=== PATIENT | female | born 1980 | race Caucasian/White ===

== ENCOUNTER 2022-05-06 18:46 | Emergency (ER) | payer BC, SELFPAY ==
[2022-05-06 18:52] VITALS: BP 101/85; PULSE 103; RESP 20; TEMP 36.4; O2SAT 98; BMI 28.9
--- NOTE | 2022-05-06 19:03 | CRLHL7_ITS ---
For Patients: As a result of the Century Cures Act, medical imaging exams and procedure reports are released immediately into your electronic medical record. You may view this report before your referring provider. If you have questions, please contact your health care provider. INDICATION: Pain, lateral ankle. COMPARISON: None. TECHNIQUE: Three views of left ankle. FINDINGS: Soft tissue swelling along the lateral malleolus. Possible widening of the lateral ankle mortise. No acute fracture. IMPRESSION: 1. Soft tissue swelling along the lateral ankle. 2. Possible widening of the lateral ankle mortise. Recommend further evaluation with weightbearing views. Dictated by Thad Ash MD @ 05/06/2022 8:00:24 PM (Electronically Signed)
--- NOTE | 2022-05-06 19:04 | ED_ITS ---
HPI - Extremity Injury (Lower) General Chief Complaint: Extremity Pain/Injury, Lower Stated Complaint: Left Ankle Injury - Fell Downstairs Time Seen by Provider: 05/06/22 18:47 Source: patient Mode of arrival: ambulatory Limitations: no limitations History of Present Illness HPI Narrative: 41-year-old female presents the ED you shortly after a fall down the stairs. She reports that she was carrying groceries down or family room when she slipped off of the stair, causing which she believes is an inversion type left ankle injury. She heard a pop and has had pain since. She cannot bear weight on the ankle. Pain is at the lateral malleolus and constant, worse with weight-bearing and movement. Has not tried taking any Tylenol or ibuprofen. No prior history of significant injury, fracture in this area in the past. No prior ankle surgeries. No other injuries. No head injury, no loss of consciousness. No numbness or tingling. No other concerns today. No intoxication. Past medical history benign, no major long-term health problems besides alopecia for which she receives injections from her foreign clerk. Denies long-term prescriptions otherwise, no allergies. ROS is notable for the musculoskeletal symptoms as above. Otherwise negative for other musculoskeletal, skin, neurological, respiratory or generalized concerns Related Data Allergies Allergy/AdvReac Type Severity Reaction Status Date / Time No Known Drug Allergies Allergy Verified 05/06/22 18:55 Exam Const: Vital Signs, click to edit/add: Vital Signs - 24 hr 05/06/22 18:52 Temperature 97.5 F L Pulse Rate [Pulse Oximeter] 103 H Respiratory Rate 20 Blood Pressure [Ri ght Upper Arm] 101/85 Pulse Oximetry 98 Oxygen Delivery Me thod Room Air Documenting provider has reviewed patient's vital signs: yes Common normals: no apparent distress General appearance: cooperative and well kempt Other: Great historian HENMT: Common normals: normocephalic Head and scalp: normocephalic Mouth: oral and palatal mucosa normal Eye: General eye: normal appearance of both eyes Other: Normal visual tracking Resp: Common normals: normal respiratory effort, no use of accessory muscles and clear to auscultation bilaterally Effort & inspection: able to speak in complete sentences Auscultation: clear to auscultation bilaterally Cardio: Common normals: regular rate, regular rhythm and peripheral pulses 2+ throughout Rate: regular rate Rhythm: regular rhythm Peripheral pulses: pulses 2+ throughout Extremity: Other: Toes move normally on left side. No obvious visual deformity. There is some tenderness and swelling along the lateral malleolus. She is very hesitant to allow a passive or active exam. She can flex and extend and does have good strength to both inversion and eversion. She is very hesitant to participate in range of motion however. She does move the toes on the right side normally. Because of her hesitancy, I elected x-ray before performing a full exam but I do appreciate good capillary refill in the toes and normal dorsalis pedis pulses. Psych: Appearance: well kempt Activity/motor behavior: appropriate eye contact Insight: insight good Judgement: judgment good Skin: Narrative: No broken skin, rashes or abrasions Course Vital Signs Vital signs: Initial Vital Signs Temperature 97.5 F L 05/06/22 18:52 Temperature Source Temporal Artery Scan 05/06/22 18:52 Pulse Rate 103 H 05/06/22 18:52 Pulse Rhythm 05/06/22 18:52 Respiratory Rate 20 05/06/22 18:52 Blood Pressure 101/85 05/06/22 18:52 Blood Pressure Mean 90 05/06/22 18:52 Blood Pressure Position Sitting 05/06/22 18:52 Pulse Oximetry 98 05/06/22 18:52 Oxygen Delivery Method 05/06/22 18:52 Vital Signs Temperature 97.5 F L 05/06/22 18:52 Pulse Rate 103 H 05/06/22 18:52 Respiratory Rate 20 05/06/22 18:52 Blood Pressure 101/85 05/06/22 18:52 Pulse Oximetry 98 05/06/22 18:52 Oxygen Delivery Method 05/06/22 18:52 Temperature 97.5 F L 05/06/22 18:52 Pulse Rate 103 H 05/06/22 18:52 Respiratory Rate 20 05/06/22 18:52 Blood Pressure 101/85 05/06/22 18:52 Pulse Oximetry 98 05/06/22 18:52 Oxygen Delivery Method 05/06/22 18:52 MDM - Extremity Injury (Lower) MDM Narrative Medical decision making narrative: Ankle fracture, versus sprain. No signs of neurovascular injury. X-ray ordered. Will start with ibuprofen 600 mg p.o. x1, re-evaluate after x-rays are available. Update: Some improvement with ibuprofen. Reviewed x-ray findings with patient including updated weight-bearing views. She was reassured by this. Discussed typical pathogenesis and course of healing with ankle sprain. Brace and crutches recommended. Tylenol, ibuprofen, ice discussed. All questions answered. Follow-up in 2 weeks if not improving with primary care physician Imaging Data Ankle x-ray: Attestation: I have reviewed the pertinent imaging results. My impression: Questionable widening of ankle mortise, specifically at the fibular articulation areas. Confirmed with radiology report as below. Weight-bearing views ordered. Update: Weight-bearing views appear normal to me Radiologist's impression: IMPRESSION: 1. Soft tissue swelling along the lateral ankle. 2. Possible widening of the lateral ankle mortise. Recommend further evaluation with weightbearing views. Update: Weight-bearing views were performed FINDINGS/IMPRESSION: No evidence of ankle mortise widening on single weightbearing view. Discharge Plan Discharge Clinical Impression: Ankle sprain and strain Patient Disposition: Home, Self-Care Condition: Stable Instructions: Ankle Sprain (ED) Additional Instructions: As we discussed, there are no signs of fracture. This is great news. Unfortunately, ankle sprains were the ligaments are stretched and or injured can be very painful. I recommend Tylenol 1000 mg every 6 hours and or ibuprofen 600 mg every 6 hours as needed for pain. Apply ice to that injured area on the lower outside part of the ankle for 15 minutes 3 times a day for the next couple of days. This will help decrease swelling and inflammation. We will give you an ankle brace, please wear this for 2 weeks. I recommend using crutches for the next few days until things are starting to feel better. You should be off of the crutches within about 5 days. If you are still having a lot of pain in 2 weeks, would like for you to make a follow-up with her primary care provider to discuss further options and treatment. Activity Level: Activity as Tolerated Discharge Diet: Regular Follow Up/Referrals: Johnnie Santos MD [Primary Care Provider] - Stand Alone Forms: [employer] Info Instructions
[2022-05-06] MEDS: IBUPROFEN 200 MG TABLET 600 MG PO (19:18)
--- NOTE | 2022-05-06 20:02 | CRLHL7_ITS ---
For Patients: As a result of the Century Cures Act, medical imaging exams and procedure reports are released immediately into your electronic medical record. You may view this report before your referring provider. If you have questions, please contact your health care provider. INDICATION: Possible ankle mortise widening. COMPARISON: Same day radiograph. TECHNIQUE: Single weightbearing view of the left ankle. FINDINGS/IMPRESSION: No evidence of ankle mortise widening on single weightbearing view. Dictated by Thad Ash MD @ 05/06/2022 8:59:28 PM (Electronically Signed)
[2022-05-06 21:27] VITALS: BP 116/87; PULSE 110; RESP 16; O2SAT 98
--- NOTE | 2022-05-06 21:27 | ED.NURSE ---
Brace applied to left ankle and crutches. Patient educated on ankle brace and crutch walking. Patient able to demonstrate crutch walking effectivkg.
== END 2022-05-06 21:31 | disposition home or self-care (01) ==
PROVIDERS: Emergency Provider Family Medicine; PCP Surgery
DX: S93.402A Sprain of unspecified ligament of left ankle, initial encounter (principal); W10.9XXA Fall (on) (from) unspecified stairs and steps, initial encounter
CPT/HCPCS: 73600; 73610; 99282; 99283; A9270

== ENCOUNTER 2023-11-06 00:47 | Emergency (ER) | payer BC, SELFPAY ==
[2023-11-06 00:50] VITALS: BP 126/81; PULSE 104; RESP 20; TEMP 36.3; O2SAT 97; BMI 32.3
--- NOTE | 2023-11-06 00:56 | ED_ITS ---
HPI - General Adult General Chief complaint: Abdominal Pain Stated complaint: Abdominal Pain Time Seen by Provider: 11/06/23 00:56 History of Present Illness HPI narrative: Burning pain in abd, feeling like cramps. All four quads hurts. Rated 9/ 10. Hx of hysterectomy. Still has appendix and gallbladder. Pt noticed pink urine on Saturday. Pt has hx of constipation, did drink laxatives. Last BM was on Saturday. 43-year-old woman presenting to the emergency department with complaint of severe cramping abdominal pain. Says it feels like contractions. She has not had any fever. History of being prone to constipation. Last bowel movement was aided by couple tabs of Dulcolax 2 mornings ago and was watery. Three days ago did have pink urine. Has not experienced dysuria. Mom has a history of kidney stones. Related Data Home Medications ?Medication ?Instructions ?Recorded ?Confirmed finasteride 1 mg tablet 1 mg PO DAILY 11/06/23 11/06/23 Allergies Allergy/AdvReac Type Severity Reaction Status Date / Time No Known Drug Allergies Allergy Verified 05/06/22 18:55 Review of Systems Status of ROS: Reports: 6 or more systems reviewed and unremarkable except as noted in History and below PFSH PFSH Social History Smoking Status: Never smoker Do you use any of these nicotine containing products: None Second hand tobacco smoke exposure: No How often do you have a drink containing alcohol: never AUDIT-C Alcohol total score: 0 Non-prescribed substance use: denies use service: No Exam Narrative: Exam Narrative: Tremulous. Breathing is mildly labored mildly tachypneic. Clearly very u ncomfortable. Somewhat anxious I think in this pain. Skin is warm and dry. She is well-perfused peripherally. No edema. Heart is little tachycardic. Lungs are clear. Abdomen with present bowel sounds is diffusely tender without peritoneal signs. No masses appreciated. No flank pain. Oropharynx is moist. Neck is supple without lymphadenopathy. Const: Vital Signs, click to edit/add: Vital Signs - 24 hr 11/06/23 00:50 Temperature 97.4 F L Pulse Rate [Left P ulse Oximeter] 104 H Respiratory Rate 20 Blood Pressure [Ri ght Upper Arm] 126/81 Pulse Oximetry 97 Oxygen Delivery Me thod Room Air Documenting provider has reviewed patient's vital signs: yes Course Vital Signs Vital signs: Initial Vital Signs Temperature 97.4 F L 11/06/23 00:50 Temperature Source Temporal Artery Scan 11/06/23 00:50 Pulse Rate 104 H 11/06/23 00:50 Pulse Rhythm Regular 11/06/23 00:50 Respiratory Rate 20 11/06/23 00:50 Blood Pressure 126/81 11/06/23 00:50 Blood Pressure Mean 96 11/06/23 00:50 Blood Pressure Position Sitting 11/06/23 00:50 Pulse Oximetry 97 11/06/23 00:50 Oxygen Delivery Method Room Air 11/06/23 00:50 Vital Signs Temperature 97.4 F L 11/06/23 00:50 Pulse Rate 104 H 11/06/23 00:50 Respiratory Rate 20 11/06/23 00:50 Blood Pressure 126/81 11/06/23 00:50 Pulse Oximetry 97 11/06/23 00:50 Oxygen Delivery Method Room Air 11/06/23 00:50 Temperature 97.4 F L 11/06/23 00:50 Pulse Rate 102 H 11/06/23 03:54 Respiratory Rate 16 11/06/23 03:54 Blood Pressure 101/64 11/06/23 03:54 Pulse Oximetry 98 11/06/23 03:54 Oxygen Delivery Method Room Air 11/06/23 03:54 Medications Administered Medications: Discontinued Medications Generic Name Dose Route Start Last Admin Trade Name Freq PRN Reason Stop Dose Admin Hydromorphone HCl 0.5 mg 11/06/23 04:03 11/06/23 04:14 Hydromorphone 0.5 Mg/0.5 Ml Inj IVP 11/06/23 04:04 0.5 mg ONCE ONE Administration Sodium Chloride 1,000 mls @ 1,000 mls/hr 11/06/23 01:04 11/06/23 02:35 0.9 % Sodium Chloride 1000 Ml IV 11/06/23 02:03 Infused .Q1H ONE Infusion Ketorolac Tromethamine 15 mg 11/06/23 01:04 11/06/23 01:27 Ketorolac 15 Mg/Ml Inj IVP 11/06/23 01:05 15 mg ONCE ONE Administration Morphine Sulfate 4 mg 11/06/23 01:04 11/06/23 01:26 Morphine 4 Mg/Ml Inj IVP 11/06/23 01:05 4 mg ONCE ONE Administration Morphine Sulfate 4 mg 11/06/23 02:25 11/06/23 02:34 Morphine 4 Mg/Ml Inj IVP 11/06/23 02:26 4 mg ONCE ONE Administration Medical Decision Making MDM Narrative Medical decision making narrative: Generalness of abdominal pain is reassuring somewhat. There were loose stools although these were assisted with bowel aid. Could be constipated with intestinal colic. Differential includes bowel obstruction the might expect a little nausea and she did have a bowel movement as noted above, constipation, ureteral stone, mesenteric adenitis enteritis gastritis, diverticulitis, urinary tract infection, ovarian cyst leaking. Will be treating pain. Initial screening labs to guide possible further imaging. Would do basic flat plate of the abdomen. IV initiated. Normal saline. Ketorolac. Morphine did help with pain. Pain returned given another dose of morphine. Abdominal x-ray reviewed by me without concerning air-fluid levels. Increased stool burden through the colon but when I went to reexamine her abdomen I was more impressed with guarding across the low abdomen. Perhaps more so in the left lower quadrant in particular. Labs with mildly elevated white count. CRP mildly elevated as well. With this guarding demonstrated an abdominal exam and needing repeated dosing of pain medication I think warrants further imaging. CT abdomen pelvis with IV contrast reviewed by me shows inflammatory changes around the sigmoid colon. I would think this is consistent with diverticulitis. I do not see free air but pending Radiology over-read. CT through the abdomen and pelvis following 83 mL Isovue 370 IV contrast Comparison: Same day radiographs Findings: Lower chest: No acute abnormality appreciated. Hepatobiliary: No significant parenchymal abnormality is appreciated. Spleen: Unremarkable. Pancreas: No acute abnormality appreciated. Adrenal glands: No acute abnormality appreciated. Kidneys: No significant parenchymal abnormality appreciated. No visualized calculi. No hydronephrosis. Bowel: No obstruction. Diverticulosis with focal sigmoid wall thickening and stranding surrounding an inflamed appearing diverticulum. The appendix is visualized and appears unremarkable. Vascular: No acute abnormality appreciated. Lymph nodes: No gross lymphadenopathy. Peritoneum: No free air. No free fluid. : Left ovarian cyst measures 2.7 centimeters. Mild bladder wall thickening. Soft tissues: No acute abnormality appreciated. Bones: No acute fracture. No lytic or blastic lesion. Impression: 1. Acute uncomplicated sigmoid diverticulitis. 2. Mild bladder wall thickening, may be reactive due to adjacent diverticulitis, but can be correlated for UTI/cystitis. Further continued pain discussed oral versus IV pain medication. She would like another treatment prior to departure. Still mildly tachycardic. This is concerning some level but I think with what appears to be uncomplicated findings in CT imaging would trial outpatient management. Did give Dilaudid IV Antibiotics from [facility]. See patient discharge plan for further discussion Medical Records Medical records reviewed: Yes I reviewed the patient's medical records Lab Data Lab results reviewed: Yes I reviewed the patient's lab results Labs: Lab Results 11/06/23 11/06/23 Range/Units 01:25 03:00 WBC 11.85 H (4.50-11.00) K/uL RBC 4.36 (4.00-5.20) m/uL Hgb 14.3 (12.0-16.0) gm/dL Hct 42.9 (33.0-51.0) % MCV 98 (80-100) fL MCH 33 (26-34) pg MCHC 33 (32-36) gm/dL RDW Coeff of Hemant 12.0 (11.5-15.5) % Plt Count 344 (140-440) K/uL Neut % (Auto) 78.5 H (42.0-72.0) % Lymph % (Auto) 12.2 L (20-44) % [place] % (Auto) 7.8 (0.0-11.0) % Eos % (Auto) 1.1 (0.0-7.0) % Baso % (Auto) 0.3 (0.0-3.0) % Neut # (Auto) 9.30 H (1.7-7.0) K/uL Lymph # (Auto) 1.40 (0.90-2.90) K/uL [place] # (Auto) 0.90 (0.00-0.90) K/UL Eos # (Auto) 0.10 (0.00-0.50) K/uL Baso # (Auto) 0.00 (0.00-0.30) K/uL Abs Immat Gran (auto) 0.00 (0.00-0.30) K/uL Imm/Tot Granulo (auto) 0.1 % Sodium 138 (135-149) mmol/L Potassium 3.9 (3.6-5.1) mmol/L Chloride 106 (96-114) mmol/L Carbon Dioxide 27 (20-32) mmol/L Anion Gap 5 L (7-15) mEq/L BUN 13 (5-24) mg/dL Creatinine 0.6 (0.5-1.5) mg/dL Estimated Creat Clear 92.17 Estimated GFR 115 ml/min Glucose 108 (60-115) mg/dL Lactate 1.1 (0.5-1.9) mmol/L Calcium 8.8 (8.4-10.6) mg/dL Total Bilirubin 0.8 (0.1-1.5) mg/dL Direct Bilirubin 0.3 (0.0-0.5) mg/dL AST 20 (12-35) U/L ALT 16 (4-35) U/L Alkaline Phosphatase 91 (40-150) U/L C-Reactive Protein 1.9 H (0.5-1.0) mg/dL Total Protein 7.0 (6.0-8.3) g/dL Albumin 4.3 (3.3-5.0) g/dL Lipase 70 (23-300) U/L Urine Color Yellow (Yellow) Urine Appearance Cloudy A (Clear) Urine pH 8.5 (5.0-8.5) Ur Specific [place] 1.020 (1.000-1.030) Urine Protein Negative (Negative) Urine Glucose (UA) Negative (Negative) Urine Ketones Negative (Negative) Urine Blood Negative (Negative) Urine Nitrite Negative (Negative) Urine Bilirubin Negative (Negative) Urine Urobilinogen 0.2 (0.2-1.0) Ur Leukocyte Esterase Negative (Negative) Urine RBC 0-2 (0-2) Urine WBC 0-2 (0-5) Ur Squamous Epith Cells Few (None-Few) Amorphous Sediment Moderate A (None) Urine Bacteria Few A (None) Urine HCG, Qual Negative (Negative) Discharge Plan Discharge Clinical Impression: Diverticulitis, Abdominal pain Patient Disposition: Home w/ Parent or Adult Condition: Stable Instructions: Abdominal Pain (ED) Additional Instructions: Focus on hydration. Light diet over the next 36 hours. Start with diluted juices, soup broths, rice, toast, crackers. Am prescribing you some [place], an opiate pain medication, which can contribute to constipation. On the days that you are taking this, you might want to take 1 to 2 tablets of senna to help keep your bowels moving. Can combine any of these medications with up to 800 mg of ibuprofen per dose or up to 1000 mg of acetaminophen per dose. Remember that each tablet of [place] contains 325 mg of acetaminophen. Return/be seen for uncontrolled pain, repeated vomiting, fever. Milliken and antibiotics in the form of metronidazole and ciprofloxacin from [facility]. Prescriptions: No Action finasteride 1 mg tablet 1 mg PO DAILY Follow Up/Referrals: Johnnie Santos MD [Primary Care Provider] - Stand Alone Forms: [employer] Info Instructions
--- NOTE | 2023-11-06 01:04 | CRLHL7_ITS ---
For Patients: As a result of the Century Cures Act, medical imaging exams and procedure reports are released immediately into your electronic medical record. You may view this report before your referring provider. If you have questions, please contact your health care provider. Indication: Abdomen pain. Technique: Abdomen 2 view. Comparison: None. Findings: Bowel: Nonobstructive pattern. Colonic stool burden could be consistent with constipation. Other: No sign of free air. No sign of soft tissue mass. No suspicious calcifications. Osseous structures are unremarkable for age. Impression: Nonobstructive pattern. Colonic stool burden could be consistent with constipation. Dictated by Anupam Galvez MD @ 11/06/2023 1:51:38 AM (Electronically Signed)
[2023-11-06] MEDS: MORPHINE 4 MG/ML INJ IVP ×2 (01:26→02:34)
[2023-11-06] MEDS: KETOROLAC 15 MG/ML inj IVP (01:27)
[2023-11-06] MEDS: 0.9 % SODIUM CHLORIDE 1000 ml 1,000 ML IV (01:27)
[2023-11-06 01:29] LABS: Lactate* 1.1 mmol/L (0.5-1.9)
[2023-11-06 01:32] LABS: Basophils Percent Auto 0.3 % (0.0-3.0); Eosinophils Percent Auto 1.1 % (0.0-7.0); Hematocrit 42.9 % (33.0-51.0); Hemoglobin* 14.3 gm/dL (12.0-16.0); Immature Granulocytes Pct Auto 0.1 %; Lymphocytes Percent Auto 12.2 % (20-44); Mean Corpuscular HGB Conc 33 gm/dL (32-36); Mean Corpuscular Hemoglobin 33 pg (26-34); Mean Corpuscular Volume 98 fL (80-100); Monocytes Percent Auto 7.8 % (0.0-11.0); Neutrophils Percent Auto 78.5 % (42.0-72.0); Platelet Count* 344 K/uL (140-440); Red Blood Count 4.36 m/uL (4.00-5.20); Slide Review Reflex No; White Blood Count* 11.85 K/uL (4.50-11.00)
[2023-11-06 01:44] LABS: Chloride* 106 mmol/L (96-114); Potassium* 3.9 mmol/L (3.6-5.1); Sodium* 138 mmol/L (135-149)
[2023-11-06 01:46] LABS: Albumin* 4.3 g/dL (3.3-5.0)
[2023-11-06 01:47] LABS: Creatinine* 0.6 mg/dL (0.5-1.5); Est. Creatinine Clearance* 92.17; Estimated Glomerular Filt Rate 115 ml/min
[2023-11-06 01:48] LABS: Anion Gap 5 mEq/L (7-15); Blood Urea Nitrogen* 13 mg/dL (5-24); Calcium* 8.8 mg/dL (8.4-10.6); Carbon Dioxide* 27 mmol/L (20-32); Glucose* 108 mg/dL (60-115)
[2023-11-06 01:49] LABS: Alanine Aminotransferase* 16 U/L (4-35); Alkaline Phosphatase* 91 U/L (40-150); Aspartate Amino Transferase* 20 U/L (12-35); Bilirubin Direct* 0.3 mg/dL (0.0-0.5); Bilirubin Total* 0.8 mg/dL (0.1-1.5); Lipase* 70 U/L (23-300)
[2023-11-06 01:51] LABS: C Reactive Protein* 1.9 mg/dL (0.5-1.0)
--- OUTSIDE RECORDS SUMMARY | 2023-11-06 01:58 | XMS_ITS | Clinical Summary ---
Author Organization [employer] [facility] Address [place], [place] [address] Care Team Providers Care Retirement Consultant Name Role Phone Johnnie Santos MD Primary Care Provider [phone]- [phone] Allergies Active Allergy Reactions Criticality Noted Date Comments Adhesive Tape-Silicones Rash 07/20/2020 Clear medical tape. Cloth tape is ok. Promethazine Rash High 07/28/2020 Medications Medication Sig Dispensed Refills Start Date End Date Status albuterol-ipratropiu m (DUONEB) (2.5-0.5 mg) in 3 mL NEBULIZATION solution 08/27/2019 Active fexofenadine (DEQUAN) 180 mg tabletIndications:Al lergic rhinitis, unspecified seasonality, unspecified trigger TAKE ONE TABLET BY MOUTH ONCE DAILY /DO NOT CRUSH OR CHEW 30 Tablet 10/08/2021 Active docusate (DOK) 100 mg capsuleIndications:C hronic constipation Take 1 Capsule (100 mg) by mouth 2 times daily if needed for Constipation. 90 Capsule 3 12/18/2021 Active psyllium (Natural Fiber Laxative) 0.52 gram capsuleIndications:C hronic constipation Take 1 Capsule by mouth once daily. 90 Capsule 3 12/18/2021 Active SUMAtriptan (IMITREX) 50 mg tabletIndications:Ot her migraine without status migrainosus, not intractable As directed 1 Tablet (50 mg) 2 times daily if needed for Migraine. Give at minimum 2hrs apart. Max Dose: 200mg per 24hrs. 18 Tablet 2 12/18/2021 Active cholecalciferol, Vitamin D3, (Vitamin D-3) 2,000 unit tabletIndications:Vi tamin D deficiency Take 2 Tablets (4,000 units) by mouth once daily. 180 tablet. 3 12/18/2021 Active pantoprazole (PROTONIX) 40 mg delayed-release tabletIndications:Ab dominal pain, epigastric Take 1 Tablet (40 mg) by mouth once daily. 90 Tablet 3 05/10/2022 Active Active Problems Problem Noted Date Diagnosed Date H. pylori infection 09/01/2021 Overview: EGD 08/2021 H pylori, recommend abx Major depressive disorder, recurrent, moderate 0 05/31/2020 Tonsillitis 07/03/2018 Alopecia areata 02/24/2016 Anxiety 04/14/2015 Constipation 04/14/2015 Resolved Problems Problem Noted Date Diagnosed Date Resolved Date Active labor 02/11/2015 016 Diet controlled gestational diabetes mellitus in third trimester 01/31/2015 02/28/2015 Insulin controlled gestation al diabetes mellitus in third trimester 01/31/2015 02/24/2016 Diet controlled gestational diabetes mellitus in third trimester 01/11/2015 02/28/2015 care, subsequent 10/08/2014 04/14/2015 Hyperemesis gravidarum 08/13/201405/02 Overview: She gets fluids 2-3 times a week during for this. Immunizations Name Administration Dates Next Due COVID-19 vaccine ([employer] NTVaren[employer] 30mcg/0.3mL) PF, MDV 09/22/2020,08/16/2020 Influenza, IIV4 12/18/2021,,01/25/2020,02/25/20 19,03/18/2018,01/07/2017,01/11/2015 Influenza, RIV3 (Age =>18 Years) 12/30/2015 Tdap 01/11/2015 Family History Medical History Relation Name Comments Cancer-breast Maternal Aunt Cancer-breast Paternal Aunt Relation Name Status Comments Maternal Aunt Paternal Aunt Social History Tobacco Use Types Packs/Day Years Used Date Smoking Tobacco: Some Days Cigarettes Smokeless Tobacco: Never Tobacco Cessation:Counseling Given: Yes Comments:1-2 per day Alcohol Use Standard Drinks/Week Comments Not Currently 0 (1 standard drink = 0.6 oz pur e alcohol) occasionally PHQ-2 Answer Date Recorded PHQ-2 TOTAL SCORE 1 12/18/2021 Social Connections Answer Date Recorded Frequency of Communication with Friends and Fami ly Not on file 12/22/2022 Financial Resource Strain Answer Date R ecorded Difficulty of Paying Living Expenses 3 12/18/2021 Difficulty of Paying Living Expenses Not on file 12/18/2021 Food Insecurity Answer Date Recorded Worried About Running Out of Food in the Last Ye ar 1 12/18/2021 Transportation Needs Answer Date Record ed Lack of Transportation (Medical) 1 12/18/2021 Housing Stability Answer Date Recorded Unable to Pay for Housing in the Last Year 1 12/18/2021 Sex and Gender Information Value Date Recorded Sex Assigned at Not on file Gender Identity Not on file Sexual Orientation Not on file Obstetrics History Para Term AB IAB SAB Ectopic Multiple Livin g Live Births 3 3 2 1 0 3 1 Date Outcome GA Total Labor Labor/2nd/3rd Weight Sex Type Anes PTL Sherry A1 A5 Name Clin Term Term 015 34w 0d 2.33 kg (5 lb 2.2 oz) M Vag Epidur al Livin g 2 8 Delivery Location:[facility] Last Filed Vital Signs Vital Sign Reading Time Taken Comments Blood Pressure 126/84 05/10/2022 9:17 AM RETAIL PERFORMANCE SPECIALIST Pulse 99 05/10/2022 9:17 AM RETAIL PERFORMANCE SPECIALIST Temperature 36.7 ??C (98 ??F) 09/26/2020 7:05 AM CDT Respiratory Rate 16 07/03/2018 1:00 PM CDT Oxygen Saturation 98% 05/10/2022 9:17 AM RETAIL PERFORMANCE SPECIALIST Inhaled Oxygen Concentration - - Weight 67.1 kg (148 lb) 05/10/2022 9:17 AM RETAIL PERFORMANCE SPECIALIST Height 152.4 cm (5') 05/10/2022 9:17 AM RETAIL PERFORMANCE SPECIALIST Body Mass Index 28.9 05/10/2022 9:17 AM RETAIL PERFORMANCE SPECIALIST Plan of Treatment Health Maintenance Due Date Last Done Comments Pneumococcal series for age 6-64 (1 of 2 - PCV) 07/11/1987 COVID-19 vaccine series ( - 2022- season) 2022 12/16/2021, 04/06/2021, 09/22/2020, Additional history exists Depression screening for age 12+ 12/18/2022 12/18/2021, 09/29/2020, 09/26/2020, Additional history exists Pap test for age 21-65 05/02/2023 9, 05/02/2018, 04/28/2015, Additional history exists BMI (ht and wt on same day) for age 18+ 05/10/2023 05/10/2022, 07/20/2020, 01/25/2020, Additional history exists Influenza for age 9-49 12/01/2023 2, 12/19/2020, 01/25/2020, Additional history exists Tetanus booster 01/11/2025 01/11/2015 HIV for age 15-65 Completed 08/03/2014 Tdap Completed 01/11/2015 Hepatitis C screening for ag e 18-79 Completed 05/23/2015, 08/03/2014 Procedures Procedure Name Priority Date/Time Associated Diagnosis Comments [employer] THIN PREP PAP SCREEN IMAGED Routine 05/02/2018 8:30 AM RETAIL PERFORMANCE SPECIALIST Cervical cancer screening ANTI HCV Routine 05/23/2015 9:26 AM RETAIL PERFORMANCE SPECIALIST Fatty liver ANTI HIV 1/2 Routine 08/03/2014 10:01 AM CDT from Last 3 Months or Most Recently Relevant to Health Maintenance Results * [employer] THIN PREP PAP SCREEN IMAGED (05/02/2018 8:30 AM RETAIL PERFORMANCE SPECIALIST) Case Report Gynecologic Cytology Report ? Case: [id number] ? Authorizing Provider: ??Johnnie Santos MD ?Collected: ? 05/02/2018 0830 ? Ordering Location: ? [facility] ?? Received: ?05/02/2018 0945 ? Clinic ? First Screen: ?Mian Nuñez ? Specimen: ?[employer] ThinPrep Vial Screening, Cervical ? 05/12/2018 10:59 AM [facility] INTERPRETATION/ RESULT NEGATIVE FOR INTRAEPITHELIAL LESION OR MALIGNANCY (NIL) (none) 05/12/2018 10:59 AM [facility] NISM(S) Shift in alan suggestive of bacterial vaginosis 05/12/2018 10:59 AM [facility] SPECIMEN ADEQUACY Satisfactory for evaluation No endocervical component seen 05/12/2018 10:59 AM [facility] HPV REQUEST HPV and PAP 05/12/2018 10:59 AM [facility] Date of LMP 04/24/2018 05/12/2018 10:59 AM [facility] Last Pap Date 04/28/15 05/12/2018 10:59 AM [facility] Last Pap Result NIL 9 10:59 AM [facility] Abnormal Pap or [place] Bx in last 5 years No 05/12/2018 10:59 AM [facility] Menstrual Status Regular Periods 05/12/2018 10:59 AM [facility] LAB[facility]ORY [place] Bx Done Today No 05/12/2018 10:59 AM [facility] Additional Information None given 05/12/2018 10:59 AM [facility] Automated Review Successful 05/12/2018 10:59 AM [facility] Comment:Specimen processed s uccessfully by automated material planner device, ThinPrep Imaging System, [employer] ANCILLARY TESTING [employer] HPV Ordered, Please see separate report 05/12/2018 10:59 AM [facility] Note The pap test is a screening technique, not a diagnostic procedure. ??It is used primarily to screen for squamous cancers and precursor lesions. ??Published studies have shown that it is subject to both false negative and false positive results. ??The pap test should not be used as the sole means to diagnose or exclude pre-malignant and malignant lesions. Cytology is screened and interpreted at [facility] - [address], [place] [address] and [facility] - [address]; [place] [address] and [facility] - [address]; [place] [address] [address] [facility] [address]; [place] [address] 05/12/2018 10:59 AM [facility] Other (Cervical) Non-Blood / Unknown 05/02/2018 8:30 AM RETAIL PERFORMANCE SPECIALIST 05/02/2018 9:45 AM RETAIL PERFORMANCE SPECIALIST Johnnie Santos MD PATHOLOGY/CYTOLOGY [facility] [address] [place] [address], [place] * ANTI HCV (05/23/2015 9:26 AM RETAIL PERFORMANCE SPECIALIST) HEPATITIS C ANTIBODY Non-Reacti ve Non-Reacti ve 05/23/2015 5:11 PM RETAIL PERFORMANCE SPECIALIST [facility] TRAL LABORATORY Blood specimen (specimen) BLOOD SPECIMEN / Unknown Venipuncture / Unknown 05/23/2015 9:26 AM RETAIL PERFORMANCE SPECIALIST 05/23/2015 9:27 AM RETAIL PERFORMANCE SPECIALIST Narrative [facility] - 05/23/2015 5:11 PM RETAIL PERFORMANCE SPECIALIST Antibodies to HCV not detected; does not exclude the possibility of exposure to HCV. Johnnie Santos MD SEND OUTS [facility] [address] [place] [address], * ANTI HIV 1/2 (08/03/2014 10:01 AM CDT) HIV-1/HIV-2 ANTIBODY Non-Reacti ve Non-Reacti ve 08/03/2014 7:00 PM CDT [facility] Blood specimen (specimen) BLOOD SPECIMEN / Unknown Venipuncture / Unknown 08/03/2014 10:01 AM CDT 08/03/2014 10:01 AM CDT Narrative [facility] - 08/03/2014 7:00 PM CDT HIV-1 p24 and HIV-1/HIV-2 Ab not detected Lori CAMP SEND OUTS [facility] [address] [place] [address], from Last 3 Months or Most Recently Relevant to Health Maintenance Advance Directives * Full Code (Latest Code Status on File) Date Activated Date Inactivated Comments 02/11/2015 8:26 PM 02/13/2015 2:46 PM * Full Code Date Activated Date Inactivated Comments 02/11/2015 6:35 PM 02/11/2015 8:26 PM Care Teams Retirement Consultant Relationship Specialty Start Date End Date Johnnie Santos MD [address] [place] [address] PCP - General Family Practice 08/16/14
--- NOTE | 2023-11-06 02:25 | CRLHL7_ITS ---
For Patients: As a result of the Century Cures Act, medical imaging exams and procedure reports are released immediately into your electronic medical record. You may view this report before your referring provider. If you have questions, please contact your health care provider. Indication: Generalized abdominal pain and guarding in the lower abdomen Technique: CT through the abdomen and pelvis following 83 mL Isovue 370 IV contrast Comparison: Same day radiographs Findings: Lower chest: No acute abnormality appreciated. Hepatobiliary: No significant parenchymal abnormality is appreciated. Spleen: Unremarkable. Pancreas: No acute abnormality appreciated. Adrenal glands: No acute abnormality appreciated. Kidneys: No significant parenchymal abnormality appreciated. No visualized calculi. No hydronephrosis. Bowel: No obstruction. Diverticulosis with focal sigmoid wall thickening and stranding surrounding an inflamed appearing diverticulum. The appendix is visualized and appears unremarkable. Vascular: No acute abnormality appreciated. Lymph nodes: No gross lymphadenopathy. Peritoneum: No free air. No free fluid. : Left ovarian cyst measures 2.7 centimeters. Mild bladder wall thickening. Soft tissues: No acute abnormality appreciated. Bones: No acute fracture. No lytic or blastic lesion. Impression: 1. Acute uncomplicated sigmoid diverticulitis. 2. Mild bladder wall thickening, may be reactive due to adjacent diverticulitis, but can be correlated for UTI/cystitis. Please note that all CT scans at this facility use dose modulation, iterative reconstruction, and/or weight-based dosing when appropriate to reduce radiation dose to as low as reasonably achievable. Dictated by Jayy Warren MD @ 11/06/2023 3:39:09 AM (Electronically Signed)
[2023-11-06 03:09] LABS: Appearance Urine Cloudy (Clear); Bilirubin Urine Negative (Negative); Blood Urine Negative (Negative); Color Urine Yellow (Yellow); Glucose Urine Negative (Negative); Ketones Urine Negative (Negative); Leukocyte Esterase Urine Negative (Negative); Nitrite Urine Negative (Negative); Protein Urine Negative (Negative); Urobilinogen Urine 0.2 (0.2-1.0); pH Urine 8.5 (5.0-8.5)
[2023-11-06 03:17] LABS: Amorphous Sediment Urine Moderate; Bacteria Urine Few; RBC Urine 0-2 (0-2); Squamous Epithelial Cell Urine Few (None-Few); Ur HCG Qualitative* Negative (Negative); WBC Urine 0-2 (0-5)
[2023-11-06 03:54] VITALS: BP 101/64; PULSE 102; RESP 16; O2SAT 98
[2023-11-06] MEDS: HYDROmorphone 0.5 mg/0.5 ml inj IVP (04:14)
== END 2023-11-06 04:22 | disposition home or self-care (01) ==
PROVIDERS: Emergency Provider Family Medicine; PCP Surgery
DX: K57.92 Diverticulitis of intestine, part unspecified, without perforation or abscess without bleeding (principal)
CPT/HCPCS: 36415; 74018; 74177; 80048; 80076; 81001; 81025; 83605; 83690; 85025; 86140; 87086; 87186; 96374; 96375; 99284; 99285; J1170; J1885; J2270; J7030; Q9967

== ENCOUNTER 2025-01-13 06:00 | Emergency (ER) | payer OTHER, SELFPAY ==
[2025-01-13] VITALS (11 sets, daily range): BP systolic 102–116; BP diastolic 64–79; PULSE 66–98; RESP 16–18; TEMP 36.6; O2SAT 92–100; BMI 32.9
--- OUTSIDE RECORDS SUMMARY | 2025-01-13 06:02 | XMS_ITS | Clinical Summary ---
Author Organization [employer] [facility] Address [address] [place] [id number] Care Team Providers Care Outbound Sales Agent Name Role Phone Johnnie Santos MD Primary Care Provider [phone]- [phone] Allergies Active Allergy Reactions Criticality Noted Date Comments Adhesive Tape-Silicones Rash 07/20/2020 Clear medical tape. Cloth tape is ok. Promethazine Rash High 07/28/2020 Medications albuterol-ipratro pium (DUONEB) (2.5-0.5 mg) in 3 mL NEBULIZATION solution 0 Active fexofenadine (DEQUAN) 180 mg tabletIndications :Allergic rhinitis, unspecified seasonality, unspecified trigger TAKE ONE TABLET BY MOUTH ONCE DAILY /DO NOT CRUSH OR CHEW 30 Tablet 2 Active docusate (DOK) 100 mg capsuleIndication s:Chronic constipation Take 1 Capsule (100 mg) by mouth 2 times daily if needed for Constipation. 90 Capsule 3 2 Active psyllium (Natural Fiber Laxative) 0.52 gram capsuleIndication s:Chronic constipation Take 1 Capsule by mouth once daily. 90 Capsule 3 2 Active SUMAtriptan (IMITREX) 50 mg tabletIndications :Other migraine without status migrainosus, not intractable As directed 1 Tablet (50 mg) 2 times daily if needed for Migraine. Give at minimum 2hrs apart. Max Dose: 200mg per 24hrs. 18 Tablet 2 2 Active cholecalciferol, Vitamin D3, (Vitamin D-3) 2,000 unit tabletIndications :Vitamin D deficiency Take 2 Tablets (4,000 units) by mouth once daily. 180 tablet. 3 2 Active pantoprazole (PROTONIX) 40 mg delayed-release tabletIndications :Abdominal pain, epigastric Take 1 Tablet (40 mg) by mouth once daily. 90 Tablet 3 3 Active Active Problems Problem Noted Date Diagnosed Date H. pylori infection 09/01/2021 Overview (09/01/2021): EGD 08/2021 H pylori, recommend abx Major [...] care, subsequent 10/08/2014 04/14/2015 Hyperemesis gravidarum 08/13/201405/02 Overview (10/08/2014): She gets fluids 2-3 times a week during for this. Encounters Date Type Department Care Team Description 12/25/2024 Nurse Triage [facility] [address] [place] [address] Johnnie Santos MD Appointment Request (DIZZINESS ) from Last 3 Months Immunizations Immunization Administration Dates Next Due COVID-19 vaccine ([employer] 30mcg/0.3mL) PF, MDV 09/22/2020,08/16/2020 Influenza, IIV4 12/18/2021, 1,01/25/2020,2018,03/18/2018,01/07/2017,01/11/2015 Influenza, IIV4 (=>6mos) MDV 12/15/2022 Influenza, RIV3 (Age =>9 Years) 12/30/2015 Tdap 01/11/2015 Family History Medical [...] Housing in the Last Year 1 12/18/2021 Comments No Sex and Gender Information Value Date Recorded Sex Assigned at Not on file Legal Sex Female 4:23 PM CDT Gender Identity Not on file Sexual Orientation [...] Epidur al Livin g 2 8 Delivery Location:[facility] Last Filed Vital Signs Vital Sign Reading Time Taken Comments Blood Pressure 126/84 05/10/2022 9:17 AM CHAINSAW MECHANIC Pulse 99 05/10/2022 9:17 AM CHAINSAW MECHANIC Temperature 36.7 C (98 F) 09/26/2020 7:05 AM CDT Respiratory Rate 16 07/03/2018 1:00 PM CDT Oxygen Saturation 98% 05/10/2022 9:17 AM CHAINSAW MECHANIC Inhaled Oxygen Concentration - - Weight 67.1 kg (148 lb) 05/10/2022 9:17 AM CHAINSAW MECHANIC Height 152.4 cm (5') 05/10/2022 9:17 AM CHAINSAW MECHANIC Body Mass Index 28.9 05/10/2022 9:17 AM CHAINSAW MECHANIC Plan of Treatment Upcoming Encounters Date Type Department Care Team (Late st Contact Info) Description 01/14/2025 11:55 AM CDT Office Visit [facility] [address] [place] [address] Johnnie Santos MD [address] [place] [address] Health Maintenance Due Date Last Done Comments Hepatitis B series for 19+ (1 of 3 - 19+ 3-dose series) 2000 HPV series for age 9-45 (1 - 3-dose SCDM series) 2008 Depression screening for age 12+ 12/18/2022 12/18/2021, 09/29/2020, 09/26/2020, Additional history exists Pap test for age 21-65 05/02/2023 9, 05/02/2018, 04/28/2015, Additional history exists BMI (ht and wt on same day) for age 18+ 05/10/2023 05/10/2022, 07/20/2020, 01/25/2020, Additional history exists COVID-19 vaccine series (2024- season) 2024 12/16/2021, 04/06/2021, 09/22/2020, Additional history exists Influenza Vaccine (#1) 2024 , 12/18/2021, 12/19/2020, Additional history exists Tetanus booster 01/11/2025 01/11/2015 RSV vaccine for adults or (1 - 1-dose 75+ series) 2056 HIV for age 15-65 Completed 08/03/2014 Hepatitis C screening for age 18-79 Completed 05/23/2015, 08/03/2014 Pneumococcal series for age 6-49 Aged Out No longer eligible based on patient's age to complete this topic Procedures Procedure Name Priority Date/Time Associated Diagnosis Comments CENTRIFUGAL EXTRACTOR OPERATOR THIN PREP PAP SCREEN IMAGED Routine 05/02/2018 8:30 AM CHAINSAW MECHANIC Cervical cancer screening ANTI HCV Routine 05/23/2015 9:26 AM CHAINSAW MECHANIC Fatty liver ANTI HIV 1/2 Routine 08/03/2014 10:01 AM CDT (HC) from Last 3 Months or Most Recently Relevant to Health Maintenance Results * CENTRIFUGAL EXTRACTOR OPERATOR THIN PREP PAP SCREEN IMAGED (05/02/2018 8:30 AM CHAINSAW MECHANIC) Case Report Gynecologic Cytology Report Case: [id number] Authorizing Provider: Johnnie Santos MD Collected: 05/02/2018 0830 Ordering Location: [facility] Received: 05/02/2018 0945 Clinic First Screen: Mian Nuñez Specimen: CENTRIFUGAL EXTRACTOR OPERATOR ThinPrep Vial Screening, Cervical 05/12/2018 10:59 AM CHAINSAW MECHANIC [facility] INTERPRETATION/ RESULT NEGATIVE FOR INTRAEPITHELIAL LESION OR MALIGNANCY (NIL) (none) 05/12/2018 10:59 AM CHAINSAW MECHANIC [facility] at [address] CHAINSAW MECHANIC ORGANISM(S) Shift in alan suggestive of bacterial vaginosis 05/12/2018 10:59 AM CHAINSAW MECHANIC [facility] SPECIMEN ADEQUACY Satisfactory for evaluation No endocervical component seen 05/12/2018 10:59 AM CHAINSAW MECHANIC [facility] HPV REQUEST HPV and PAP 05/12/2018 10:59 AM CHAINSAW MECHANIC [facility] Date of LMP 04/24/2018 05/12/2018 10:59 AM CHAINSAW MECHANIC [facility] Last Pap Date 04/28/15 05/12/2018 10:59 AM CHAINSAW MECHANIC [facility] Last Pap Result NIL 9 10:59 AM CHAINSAW MECHANIC [facility] Abnormal Pap or Severance Bx in last 5 years No 05/12/2018 10:59 AM CHAINSAW MECHANIC [facility] Menstrual Status Regular Periods 05/12/2018 10:59 AM CHAINSAW MECHANIC [facility] Severance Bx Done Today No 05/12/2018 10:59 AM CHAINSAW MECHANIC [facility] Additional Information None given 05/12/2018 10:59 AM CHAINSAW MECHANIC [facility] Automated Review Successful 05/12/2018 10:59 AM CHAINSAW MECHANIC [facility] Comment:Specimen processed s uccessfully by automated outside parts salesman device, ThinPrep Imaging System, [employer] ANCILLARY TESTING CENTRIFUGAL EXTRACTOR OPERATOR HPV Ordered, Please see separate report 05/12/2018 10:59 AM CHAINSAW MECHANIC [facility] Note The pap test is a screening technique, not a diagnostic procedure. It is used primarily to screen for squamous cancers and precursor lesions. Published studies have shown that it is subject to both false negative and false positive results. The pap test should not be used as the sole means to diagnose or exclude pre-malignant and malignant lesions. Cytology is screened and interpreted at [facility] - [address], [place] [address] and [facility] - [address]; [place] [address] and [facility] - [address]; [place] [address]; [place] [address] 05/12/2018 10:59 AM CHAINSAW MECHANIC [facility]TRVA LAB[facility]AT[facility] Other (Cervical) Non-Blood / Unknown 05/02/2018 8:30 AM CHAINSAW MECHANIC 05/02/2018 9:45 AM CHAINSAW MECHANIC Johnnie Santos MD PATHOLOGY/CYTOLOGY Final R esult [facility] [address] [place] [address], [place] * ANTI HCV (05/23/2015 9:26 AM CHAINSAW MECHANIC) HEPATITIS C ANTIBODY Non-Reacti ve Non-Reacti ve 05/23/2015 5:11 PM CHAINSAW MECHANIC [facility] Blood specimen (specimen) BLOOD SPECIMEN / Unknown Venipuncture / Unknown 05/23/2015 9:26 AM CHAINSAW MECHANIC 05/23/2015 9:27 AM CHAINSAW MECHANIC Narrative [facility] - 05/23/2015 5:11 PM CHAINSAW MECHANIC Antibodies to HCV not detected; does not exclude the possibility of exposure to HCV. Johnnie Santos MD SEND OUTS Final Resu lt [facility] [address] [place] [address], [place] * ANTI HIV 1/2 (08/03/2014 10:01 AM CDT) HIV-1/HIV-2 ANTIBODY Non-Reacti ve Non-Reacti ve 08/03/2014 7:00 PM CDT [facility] Blood specimen (specimen) BLOOD SPECIMEN / Unknown Venipuncture / Unknown 08/03/2014 10:01 AM CDT 08/03/2014 10:01 AM CDT [facility] - 08/03/2014 7:00 PM CDT HIV-1 p24 and HIV-1/HIV-2 Ab not detected us Lori CAMP SEND OUTS Final R esult Performing Organization Address City/[facility]/ZIP Co de Phone Number [facility] [address] [place] [address], [place] from Last 3 Months or Most Recently Relevant to Health Maintenance Advance Directives * Full Code (Latest Code Status on File) Date Activated Date Inactivated Comments 02/11/2015 8:26 PM 02/13/2015 2:46 PM * Full Code Date Activated Date Inactivated Comments 02/11/2015 6:35 PM 02/11/2015 8:26 PM Care Teams Outbound Sales Agent Relationship Specialty Start Date End Date Johnnie Santos MD [address] [place] [address] PCP - General Family Practice 08/16/14
--- NOTE | 2025-01-13 06:05 | ED.GENADULT ---
HPI - General Adult General Time Seen by Provider: 06:05 <Christian Oneil MD - Last Filed: 01/13/25 07:10> Date Seen: 01/13/25 <Christian Oneil MD - Last Filed: 01/13/25 07:10> Chief complaint: Abdominal Pain <Christian Oneil MD - Last Filed: 01/13/25 07:10> Stated complaint: abdominal pain <Christian Oneil MD - Last Filed: 01/13/25 07:10> Time Seen by Provider: 01/13/25 06:04 <Christian Oneil MD - Last Filed: 01/13/25 07:10> Source: patient and family <Christian Oneil MD - Last Filed: 01/13/25 07:10> Mode of arrival: ambulatory <Christian Oneil MD - Last Filed: 01/13/25 07:10> Limitations: no limitations <Christian Oneil MD - Last Filed: 01/13/25 07:10> History of Present Illness HPI narrative: 42-year-old female with history hysterectomy who comes in today with abdominal pain. Patient epigastric pain that radiates to the back, she says this started about midnight. Nausea vomiting, no hematemesis. Last bowel movement was 4 days ago was normal. Pain is constant. <Christian Oneil MD - Last Filed: 01/13/25 07:10> Related Data Home medications: Home Medications ?Medication ?Instructions ?Recorded ?Confirmed finasteride 1 mg tablet 1 mg PO DAILY 11/06/23 11/06/23 Previous Rx's ?Medication ?Instructions ?Recorded ondansetron 4 mg disintegrating 4 mg PO Q6H #20 tabs 01/13/25 tablet oxycodone 5 mg tablet 5 mg PO Q6H PRN pain #12 tabs 01/13/25 <Christian Oneil MD - Last Filed: 01/13/25 07:10> Allergies/adverse reactions: Allergies Allergy/AdvReac Type Severity Reaction Status Date / Time No Known Drug Allergies Allergy Verified 05/06/22 18:55 <Christian Oneil MD - Last Filed: 01/13/25 07:10> PFSH PFSH Social History: Social History Smoking Status: Never smoker Do you use any of these nicotine containing products: None Second hand tobacco smoke exposure: No How often do you have a drink containing alcohol: never AUDIT-C Alcohol total score: 0 Non-prescribed substance use: denies use service: No <Christian Oneil MD - Last Filed: 01/13/25 07:10> Exam Narrative: Exam Narrative: General: Well-developed and well-nourished, patient is tearful, moaning, rolling around in bed Head: Atraumatic and normocephalic Eyes: Pupils are equal reactive, extraocular motions intact, conjunctiva clear ENT: External nose and ears are normal, posterior pharynx without erythema or exudate Neck: No midline cervical tenderness, full spontaneous range of motion the neck, trachea midline, no adenopathy Heart: Regular rate and rhythm no murmurs or thrills Lungs: Clear to auscultation bilaterally without wheezes or crackles Abdomen: Soft, upper abdominal tenderness worse in the right upper quadrant epigastrium, nondistended with active bowel sounds Musculoskeletal: No tenderness, deformity, or edema Neurologic: Awake, alert, and oriented x3, no gross focal neurologic deficits, cranial nerves intact as tested Psych: Mood and affect are appropriate Skin: No rashes <Christian Oneil MD - Last Filed: 01/13/25 07:10> Const: Vital Signs, click to edit/add: Vital Signs - 24 hr 01/13/25 06:07 01/13/25 06:17 01/13/25 06:19 Temperature 98 F Pulse Rate 66 Pulse Rate [Right Pulse Oximeter] 75 Respiratory Rate 18 Blood Pressure Blood Pressure [Le ft Upper Arm] 102/72 Pulse Oximetry 100 100 100 Oxygen Delivery Me thod Room Air 01/13/25 06:41 01/13/25 06:44 01/13/25 07:04 Temperature 98 F Pulse Rate 73 Pulse Rate [Right Pulse Oximeter] Respiratory Rate Blood Pressure 116/70 104/70 Blood Pressure [Le ft Upper Arm] Pulse Oximetry 92 Oxygen Delivery Me thod 01/13/25 07:22 01/13/25 07:42 01/13/25 08:01 Temperature Pulse Rate 72 69 73 Pulse Rate [Right Pulse Oximeter] Respiratory Rate Blood Pressure 111/64 104/72 104/71 Blood Pressure [Le ft Upper Arm] Pulse Oximetry 94 95 94 Oxygen Delivery Me thod 01/13/25 08:30 01/13/25 09:21 Temperature Pulse Rate 79 Pulse Rate [Right Pulse Oximeter] 98 Respiratory Rate 16 18 Blood Pressure Blood Pressure [Le ft Upper Arm] 114/79 Pulse Oximetry 95 Oxygen Delivery Me thod <Christian Oneil MD - Last Filed: 01/13/25 07:10> Vital Signs, click to edit/add: Vital Signs - 24 hr 01/13/25 06:07 01/13/25 06:17 01/13/25 06:19 Temperature 98 F Pulse Rate 66 Pulse Rate [Right Pulse Oximeter] 75 Respiratory Rate 18 Blood Pressure Blood Pressure [Le ft Upper Arm] 102/72 Pulse Oximetry 100 100 100 Oxygen Delivery Me thod Room Air 01/13/25 06:41 01/13/25 06:44 01/13/25 07:04 Temperature 98 F Pulse Rate 73 Pulse Rate [Right Pulse Oximeter] Respiratory Rate Blood Pressure 116/70 104/70 Blood Pressure [Le ft Upper Arm] Pulse Oximetry 92 Oxygen Delivery Me thod 01/13/25 07:22 01/13/25 07:42 01/13/25 08:01 Temperature Pulse Rate 72 69 73 Pulse Rate [Right Pulse Oximeter] Respiratory Rate Blood Pressure 111/64 104/72 104/71 Blood Pressure [Le ft Upper Arm] Pulse Oximetry 94 95 94 Oxygen Delivery Me thod 01/13/25 08:30 01/13/25 09:21 Temperature Pulse Rate 79 Pulse Rate [Right Pulse Oximeter] 98 Respiratory Rate 16 18 Blood Pressure Blood Pressure [Le ft Upper Arm] 114/79 Pulse Oximetry 95 Oxygen Delivery Me thod <Johnnie Rosario DO - Last Filed: 01/13/25 09:49> Course Course ED Course: Reviewed prior emergency department visit November 22 patient was seen with abdominal pain at that time labs reassuring, CT scan with diverticulitis. Patient presents today with upper abdominal pain, nausea vomiting., hematemesis. On exam, vital is stable, appears uncomfortable, epigastric and right upper quadrant tenderness with some mild left upper quadrant tenderness. Concern for pancreatitis, acute cholecystitis or biliary colic, gastritis or perforation a gastric ulcer. Also consider constipation although pain seems out of proportion this. Dilaudid IV along with Zofran given, labs CT ordered. <Christian Oneil MD - Last Filed: 01/13/25 07:10> Reevaluation(s) Time of Reevaluation #1: 06:39 <Christian Oneil MD - Last Filed: 01/13/25 07:10> Reevaluation #1: Patient back from CT, still having significant pain in spite of Dilaudid 1 mg total over 30 minutes. Toradol IV is ordered. CT abdomen pelvis and pelvis interpreted by me with distended gallbladder, distended stomach, some dilated small bowel loops in the upper abdomen concerning for possible obstruction versus enteritis. <Christian Oneil MD - Last Filed: 01/13/25 07:10> Time of Reevaluation #2: 07:09 <Christian Oneil MD - Last Filed: 01/13/25 07:10> Reevaluation #2: Labs independently interpreted by me with white blood cell count 12.4, hemoglobin 15.3, mild hypokalemia, normal glucose, AST 54, ALT 36, lipase 112. Radiology interpretation of CT scan with distended gallbladder, no other acute findings. Right upper quadrant US ordered. Patient is more comfortable. <Christian Oneil MD - Last Filed: 01/13/25 07:10> Vital Signs Vital signs: Initial Vital Signs Temperature 98 F 01/13/25 06:07 Temperature Source Temporal Artery Scan 01/13/25 06:07 Pulse Rate 75 01/13/25 06:07 Respiratory Rate 18 01/13/25 06:07 Blood Pressure 102/72 01/13/25 06:07 Blood Pressure Mean 82 01/13/25 06:07 Blood Pressure Position Supine 01/13/25 06:07 Pulse Oximetry 100 01/13/25 06:07 Oxygen Delivery Method Room Air 01/13/25 06:07 Vital Signs Temperature 98 F 01/13/25 06:07 Pulse Rate 75 01/13/25 06:07 Respiratory Rate 18 01/13/25 06:07 Blood Pressure 102/72 01/13/25 06:07 Pulse Oximetry 100 01/13/25 06:07 Oxygen Delivery Method Room Air 01/13/25 06:07 Temperature 98 F 01/13/25 06:44 Pulse Rate 98 01/13/25 09:21 Respiratory Rate 18 01/13/25 09:21 Blood Pressure 114/79 01/13/25 09:21 Pulse Oximetry 95 01/13/25 08:30 Oxygen Delivery Method Room Air 01/13/25 06:07 <Christian Oneil MD - Last Filed: 01/13/25 07:10> Initial Vital Signs Temperature 98 F 01/13/25 06:07 Temperature Source Temporal Artery Scan 01/13/25 06:07 Pulse Rate 75 01/13/25 06:07 Respiratory Rate 18 01/13/25 06:07 Blood Pressure 102/72 01/13/25 06:07 Blood Pressure Mean 82 01/13/25 06:07 Blood Pressure Position Supine 01/13/25 06:07 Pulse Oximetry 100 01/13/25 06:07 Oxygen Delivery Method Room Air 01/13/25 06:07 Vital Signs Temperature 98 F 01/13/25 06:07 Pulse Rate 75 01/13/25 06:07 Respiratory Rate 18 01/13/25 06:07 Blood Pressure 102/72 01/13/25 06:07 Pulse Oximetry 100 01/13/25 06:07 Oxygen Delivery Method Room Air 01/13/25 06:07 Temperature 98 F 01/13/25 06:44 Pulse Rate 98 01/13/25 09:21 Respiratory Rate 18 01/13/25 09:21 Blood Pressure 114/79 01/13/25 09:21 Pulse Oximetry 95 01/13/25 08:30 Oxygen Delivery Method Room Air 01/13/25 06:07 <Johnnie Rosario DO - Last Filed: 01/13/25 09:49> Medications Administered Medications: Discontinued Medications Generic Name Dose Route Start Last Admin Trade Name Freq PRN Reason Stop Dose Admin Hydromorphone HCl 0.5 mg 01/13/25 06:08 01/13/25 06:15 Hydromorphone 0.5 Mg/0.5 Ml Inj IVP 01/13/25 06:09 0.5 mg ONCE ONE Administration Hydromorphone HCl 0.5 mg 01/13/25 06:25 01/13/25 06:27 Hydromorphone 0.5 Mg/0.5 Ml Inj IVP 01/13/25 06:26 0.5 mg ONCE ONE Administration Sodium Chloride 1,000 mls @ 1,000 mls/hr 01/13/25 06:30 01/13/25 07:43 0.9 % Sodium Chloride 1000 Ml IV 01/13/25 07:29 Infused .Q1H CAROLA Infusion Ketorolac Tromethamine 15 mg 01/13/25 06:40 01/13/25 06:44 Ketorolac 15 Mg/Ml Inj IVP 01/13/25 06:41 15 mg ONCE ONE Administration Morphine Sulfate 4 mg 01/13/25 08:35 01/13/25 08:39 Morphine 4 Mg/Ml Inj IVP 01/13/25 08:36 4 mg ONCE ONE Administration Ondansetron HCl 4 mg 01/13/25 06:08 01/13/25 06:12 Ondansetron 2 Mg/Ml Inj IVP 01/13/25 06:09 4 mg ONCE ONE Administration <Christian Oneil MD - Last Filed: 01/13/25 07:10> Discontinued Medications Generic Name Dose Route Start Last Admin Trade Name Freq PRN Reason Stop Dose Admin Hydromorphone HCl 0.5 mg 01/13/25 06:08 01/13/25 06:15 Hydromorphone 0.5 Mg/0.5 Ml Inj IVP 01/13/25 06:09 0.5 mg ONCE ONE Administration Hydromorphone HCl 0.5 mg 01/13/25 06:25 01/13/25 06:27 Hydromorphone 0.5 Mg/0.5 Ml Inj IVP 01/13/25 06:26 0.5 mg ONCE ONE Administration Sodium Chloride 1,000 mls @ 1,000 mls/hr 01/13/25 06:30 01/13/25 07:43 0.9 % Sodium Chloride 1000 Ml IV 01/13/25 07:29 Infused .Q1H CAROLA Infusion Ketorolac Tromethamine 15 mg 01/13/25 06:40 01/13/25 06:44 Ketorolac 15 Mg/Ml Inj IVP 01/13/25 06:41 15 mg ONCE ONE Administration Morphine Sulfate 4 mg 01/13/25 08:35 01/13/25 08:39 Morphine 4 Mg/Ml Inj IVP 01/13/25 08:36 4 mg ONCE ONE Administration Ondansetron HCl 4 mg 01/13/25 06:08 01/13/25 06:12 Ondansetron 2 Mg/Ml Inj IVP 01/13/25 06:09 4 mg ONCE ONE Administration <Johnnie Rosario DO - Last Filed: 01/13/25 09:49> Medical Decision Making MDM Narrative Medical decision making narrative: Patient was signed out me pending results of her ultrasound. Ultrasound returned showing no signs of cholecystitis. Considering this this very well may be biliary colic and she can follow-up outpatient. She is agreeable to this plan. I will provide oxycodone for pain control for the next few days and Zofran for nausea. She is agreeable to this plan. [facility] but co-pay was too high some medication was sent to [place] [facility]. <Johnnie Rosario, - Last Filed: 01/13/25 09:49> Lab Data Labs: Lab Results 01/13/25 Range/Units 06:15 WBC 12.42 H (4.50-11.00) K/uL RBC 4.66 (4.00-5.20) m/uL Hgb 15.3 (12.0-16.0) gm/dL Hct 46.0 (33.0-51.0) % MCV 99 (80-100) fL MCH 33 (26-34) pg MCHC 33 (32-36) gm/dL RDW Coeff of Hemant 12.9 (11.5-15.5) % Plt Count 395 (140-440) K/uL Neut % (Auto) 65.8 (42.0-72.0) % Lymph % (Auto) 25.0 (20-44) % [place] % (Auto) 8.1 (0.0-11.0) % Eos % (Auto) 0.5 (0.0-7.0) % Baso % (Auto) 0.4 (0.0-3.0) % Neut # (Auto) 8.20 H (1.7-7.0) K/uL Lymph # (Auto) 3.10 H (0.90-2.90) K/uL [place] # (Auto) 1.00 H (0.00-0.90) K/UL Eos # (Auto) 0.10 (0.00-0.50) K/uL Baso # (Auto) 0.00 (0.00-0.30) K/uL Abs Immat Gran (auto) 0.00 (0.00-0.30) K/uL Imm/Tot Granulo (auto) 0.2 % Sodium 133 L (135-149) mmol/L Potassium 3.4 L (3.6-5.1) mmol/L Chloride 98 (96-114) mmol/L Carbon Dioxide 27 (20-32) mmol/L Anion Gap 8 (7-15) mEq/L BUN 13 (5-24) mg/dL Creatinine 0.8 (0.5-1.5) mg/dL Estimated Creat Clear 105.83 Estimated GFR 94 ml/min Glucose 153 H (60-115) mg/dL Calcium 8.9 (8.4-10.6) mg/dL Magnesium 2.1 (1.5-2.6) mg/dL Total Bilirubin 1.0 (0.1-1.5) mg/dL Direct Bilirubin 0.3 (0.0-0.5) mg/dL AST 54 H (12-35) U/L ALT 36 H (4-35) U/L Alkaline Phosphatase 127 (40-150) U/L Total Protein 7.3 (6.0-8.3) g/dL Albumin 4.4 (3.3-5.0) g/dL Lipase 112 (23-300) U/L <Christian Oneil MD - Last Filed: 01/13/25 07:10> Lab Results 01/13/25 Range/Units 06:15 WBC 12.42 H (4.50-11.00) K/uL RBC 4.66 (4.00-5.20) m/uL Hgb 15.3 (12.0-16.0) gm/dL Hct 46.0 (33.0-51.0) % MCV 99 (80-100) fL MCH 33 (26-34) pg MCHC 33 (32-36) gm/dL RDW Coeff of Hemant 12.9 (11.5-15.5) % Plt Count 395 (140-440) K/uL Neut % (Auto) 65.8 (42.0-72.0) % Lymph % (Auto) 25.0 (20-44) % [place] % (Auto) 8.1 (0.0-11.0) % Eos % (Auto) 0.5 (0.0-7.0) % Baso % (Auto) 0.4 (0.0-3.0) % Neut # (Auto) 8.20 H (1.7-7.0) K/uL Lymph # (Auto) 3.10 H (0.90-2.90) K/uL [place] # (Auto) 1.00 H (0.00-0.90) K/UL Eos # (Auto) 0.10 (0.00-0.50) K/uL Baso # (Auto) 0.00 (0.00-0.30) K/uL Abs Immat Gran (auto) 0.00 (0.00-0.30) K/uL Imm/Tot Granulo (auto) 0.2 % Sodium 133 L (135-149) mmol/L Potassium 3.4 L (3.6-5.1) mmol/L Chloride 98 (96-114) mmol/L Carbon Dioxide 27 (20-32) mmol/L Anion Gap 8 (7-15) mEq/L BUN 13 (5-24) mg/dL Creatinine 0.8 (0.5-1.5) mg/dL Estimated Creat Clear 105.83 Estimated GFR 94 ml/min Glucose 153 H (60-115) mg/dL Calcium 8.9 (8.4-10.6) mg/dL Magnesium 2.1 (1.5-2.6) mg/dL Total Bilirubin 1.0 (0.1-1.5) mg/dL Direct Bilirubin 0.3 (0.0-0.5) mg/dL AST 54 H (12-35) U/L ALT 36 H (4-35) U/L Alkaline Phosphatase 127 (40-150) U/L Total Protein 7.3 (6.0-8.3) g/dL Albumin 4.4 (3.3-5.0) g/dL Lipase 112 (23-300) U/L <Johnnie Rosario DO - Last Filed: 01/13/25 09:49> Imaging Data CT scan abdomen and pelvis: Attestation: I have reviewed the pertinent imaging results. <Johnnie Rosario DO - Last Filed: 01/13/25 09:49> Radiologist's impression: 1. There is a 1.4 centimeter nodule in the inferior lingula which was not present previously. This will require further evaluation. As a starting point, a full formal chest CT should be considered at a clinically appropriate time. 2. Distended gallbladder without visible stones, wall thickening or pericholecystic fluid. As there is no other potential visible cause for upper abdominal pain, recommend sonography for further evaluation. 3. Perirectal inflammatory change similar to November 06, 2023. 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 4. Other nonacute appearing findings as above Please note that all CT scans at this facility use dose modulation, iterative reconstruction, and/or weight-based dosing when appropriate to reduce radiation dose to as low as reasonably achievable. Dictated by Blanco Hurtado MD @ 01/13/2025 6:50:39 AM <Johnnie Rosario DO - Last Filed: 01/13/25 09:49> US - abdomen: Attestation: I have reviewed the pertinent imaging results. <Johnnie Rosario DO - Last Filed: 01/13/25 09:49> Radiologist's impression: No gallstones. No evidence of acute cholecystitis. Per technologist patient was diffusely tender but sonographic Linn`s sign was negative. Dictated by Dain Beatty MD @ 01/13/2025 8:08:05 AM <Johnnie Rosario DO - Last Filed: 01/13/25 09:49> Discharge Plan Discharge Clinical Impression: Biliary colic <Christian Oneil MD - Last Filed: 01/13/25 07:10> Patient Disposition: Home, Self-Care <Christian Oneil MD - Last Filed: 01/13/25 07:10> Condition: Improved <Christian Oneil MD - Last Filed: 01/13/25 07:10> Instructions: Biliary Colic (ED) <Christian Oneil MD - Last Filed: 01/13/25 07:10> Additional Instructions: I believe your symptoms are likely from what we call biliary colic. This is an issue the gallbladder any should follow up with General surgery outpatient. I provided oxycodone for pain and Zofran for nausea. You will be unable to be prescribe further narcotics for this pain from this emergency department. Return to emergency department for other new or worsening symptoms. <Christian Oneil MD - Last Filed: 01/13/25 07:10> Prescriptions: New ondansetron 4 mg tablet,disintegrating 4 mg PO Q6H Qty: 20 0RF oxycodone 5 mg tablet 5 mg PO Q6H PRN (Reason: pain) Qty: 12 0RF No Action finasteride 1 mg tablet 1 mg PO DAILY <Christian Oneil MD - Last Filed: 01/13/25 07:10> Follow Up/Referrals: Johnnie Santos MD [Primary Care Provider, Family Practice] <Christian Oneil MD - Last Filed: 01/13/25 07:10> Stand Alone Forms: [employer] Info Instructions <Christian Oneil MD - Last Filed: 01/13/25 07:10>
--- NOTE | 2025-01-13 06:09 | CRLHL7_ITS ---
For Patients: As a result of the Century Cures Act, medical imaging exams and procedure reports are released immediately into your electronic medical record. You may view this report before your referring provider. If you have questions, please contact your health care provider. INDICATION: Upper abdominal pain. COMPARISON: November 06, 2023 TECHNIQUE: CT examination of the abdomen and pelvis was performed following the uneventful intravenous administration of 83 cc of Isovue 370. Thin section axial images were obtained from the lung bases through the pubic symphysis. Oral contrast was not administered. Please note that all CT scans at this facility use dose modulation, iterative reconstruction, and/or weight-based dosing when appropriate to reduce radiation dose to as low as reasonably achievable. FINDINGS: LUNG BASES: There is a 1.4 centimeter nodule in the inferior lingula which was not present previously. This requires further evaluation. As a starting point, recommended full formal chest CT at a clinically appropriate time. Heart size normal at the lung bases. Small hiatal hernia. LIVER/BILIARY SYSTEM:The liver is normal in size and configuration. There is no focal mass and there is no intra- or extra hepatic biliary ductal dilatation.Hepatic steatosis. Distended gallbladder though no visible stones, wall thickening or pericholecystic fluid. Given the upper abdominal pain, recommend sonography for further evaluation. Incidental Phrygian cap. ADRENALS: Normal KIDNEYS, URETERS and BLADDER:The kidneys appear normal. No visible mass, calculus or hydronephrosis. The ureters and bladder as visualized appear normal. SPLEEN:Normal appearance. PANCREAS: Appears normal. RETROPERITONEUM and MESENTERY: There is no mass, adenopathy or aortic aneurysm. GASTROINTESTINAL SYSTEM: There is perirectal inflammatory change which was present previously. This likely represents proctitis though it could be either chronic or recurrent. There is scattered diverticulosis without evidence of diverticulitis. No mechanical obstruction of small bowel or large bowel. PELVIS: No mass or adenopathy identified. OSSEOUS STRUCTURES and ABDOMINAL WALL: There is an age-appropriate appearance of the osseous structures.No significant abdominal wall defect. OTHER: No free fluid or free air. IMPRESSION: 1. There is a 1.4 centimeter nodule in the inferior lingula which was not present previously. This will require further evaluation. As a starting point, a full formal chest CT should be considered at a clinically appropriate time. 2. Distended gallbladder without visible stones, wall thickening or pericholecystic fluid. As there is no other potential visible cause for upper abdominal pain, recommend sonography for further evaluation. 3. Perirectal inflammatory change similar to November 06, 2023. 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 4. Other nonacute appearing findings as above Please note that all CT scans at this facility use dose modulation, iterative reconstruction, and/or weight-based dosing when appropriate to reduce radiation dose to as low as reasonably achievable. Dictated by Blanco Hurtado MD @ 01/13/2025 6:50:39 AM (Electronically Signed)
[2025-01-13] MEDS: ONDANSETRON 2 MG/ML inj 4 MG IVP (06:12)
[2025-01-13 06:44] LABS: Hematocrit* 46.0 % (33.0-51.0); Hemoglobin* 15.3 gm/dL (12.0-16.0); Immature Granulocytes Pct Auto 0.2 %; Mean Corpuscular HGB Conc 33 gm/dL (32-36); Mean Corpuscular Hemoglobin 33 pg (26-34); Mean Corpuscular Volume 99 fL (80-100); RDW Coefficient of Variation % 12.9 % (11.5-15.5); Red Blood Count* 4.66 m/uL (4.00-5.20); White Blood Count* 12.42 K/uL (4.50-11.00)
[2025-01-13 06:46] LABS: Albumin* 4.4 g/dL (3.3-5.0); Chloride* 98 mmol/L (96-114); Potassium* 3.4 mmol/L (3.6-5.1); Sodium* 133 mmol/L (135-149)
[2025-01-13 06:47] LABS: Immature Granulocytes Abs Auto 0.00 K/uL (0.00-0.30); Lymphocytes Absolute Auto 3.10 K/uL (0.90-2.90); Slide Review Reflex No
[2025-01-13 06:48] LABS: Anion Gap 8 mEq/L (7-15); Blood Urea Nitrogen* 13 mg/dL (5-24); Carbon Dioxide* 27 mmol/L (20-32); Creatinine* 0.8 mg/dL (0.5-1.5); Est. Creatinine Clearance* 105.83; Estimated Glomerular Filt Rate 94 ml/min
[2025-01-13 06:49] LABS: Alanine Aminotransferase* 36 U/L (4-35); Alkaline Phosphatase* 127 U/L (40-150); Aspartate Amino Transferase* 54 U/L (12-35); Bilirubin Direct* 0.3 mg/dL (0.0-0.5); Bilirubin Total* 1.0 mg/dL (0.1-1.5); Calcium* 8.9 mg/dL (8.4-10.6); Glucose* 153 mg/dL (60-115); Total Protein* 7.3 g/dL (6.0-8.3)
--- NOTE | 2025-01-13 06:53 | CRLHL7_ITS ---
For Patients: As a result of the Century Cures Act, medical imaging exams and procedure reports are released immediately into your electronic medical record. You may view this report before your referring provider. If you have questions, please contact your health care provider. INDICATION: Upper abdominal pain. TECHNIQUE: Ultrasound abdomen limited. Limited sonographic images of the gallbladder and biliary system were obtained using brower-scale and color Doppler images. COMPARISON: CT and pelvis 01/13/2025. FINDINGS: Gallbladder: No stones or sludge. 3 mm with re-measurement, upper limit of normal. No pericholecystic fluid. Negative sonographic linn`s sign although per technologist the patient was diffusely tender. Common bile duct: 4 mm, normal. No choledocholithiasis. IMPRESSION: No gallstones. No evidence of acute cholecystitis. Per technologist patient was diffusely tender but sonographic Linn`s sign was negative. Dictated by Dain Beatty MD @ 01/13/2025 8:08:05 AM (Electronically Signed)
[2025-01-13] MEDS: MORPHINE 4 MG/ML INJ IVP (08:39)
== END 2025-01-13 09:17 | disposition home or self-care (01) ==
PROVIDERS: Emergency Provider Family Medicine; PCP Surgery
DX: K80.20 Calculus of gallbladder without cholecystitis without obstruction (principal)
CPT/HCPCS: 36415; 74177; 76705; 80048; 80076; 83690; 83735; 85025; 94761; 96374; 96375; 99284; 99285; J1171; J1885; J2270; J2405; J7030; Q9967